=== PATIENT | female | born 1980 | race Caucasian/White ===

== ENCOUNTER → 2017-05-31 | Day surgery (SDC) | payer BC, OTHER ==
[~2017-05-31] VITALS: Ht 157.5 cm; Wt 60.3 kg
[~2017-05-31] MED LIST: BUPIVACAINE MPF 0.5% 30 ML VIAL. ONE; CETI10TA22 PO; CYCL10TA2 PO; DESFLURANE 31 TO 60 MINUTES IH ONE; DEXAMETHASONE SOD PHOS 20 MG/5 ML VIAL. ONE; DOCU-109 PO; DOXY100T PO; EPINEPHrine 1 MG/ML VIAL ONE; EPINEPHrine VIAL 30 MG/30 ML VIAL ONE; ESMOLOL 100 MG/10 ML VIAL. IV ONE; GLYCOPYRROLATE 1 MG/5 ML VIAL. ONE; HYDR-971 PO; HYDROcodone/APAP 5/325MG 1 TAB TABLET PO PRN; HYDROmorphone 2 MG/ML VIAL IV PRN; IV RINGERS,LACTATED 1000ML 1,000 ML IV SCH; LIDOCAINE 1% 1 ML SYRINGE. ID PRN; LIDOCAINE 1% 20 ML VIAL. ONE; LIDOCAINE 2% PF Vial for OR 5 ML VIAL. ONE; MIDAZOLAM HCL/PF 2 MG/2 ML VIAL. ONE; MONT10TA9 PO; MORPHINE SULFATE 2 MG/ML DISP.SYRIN. IV PRN; NAPR500T3 PO; ONDA4TAB10 SL; ONDANSETRON PF 4 MG/2 ML VIAL. IV PRN; ONDANSETRON PF 4 MG/2 ML VIAL. ONE; OXYC10TA PO; PHENYLEPHRINE 10 MG/ML VIAL. ONE; PROCHLORPERAZINE 10 MG/2 ML VIAL. IV PRN; PROCHLORPERAZINE 10 MG/2 ML VIAL. ONE; PROPOFOL 20 ML IV ONE; SERT50TA PO; SEVOFLURANE 61 TO 120 MINUTES. IH ONE; TRIA10.8 NS; VENTOLIN HFA18 GM INH; fentaNYL PF VIAL 100 MCG/2 ML VIAL IV PRN; fentaNYL PF VIAL 100 MCG/2 ML VIAL ONE
[2017-05-31 06:35] LABS: NEG OBC UR NEG; POS OBC UR POS
--- NOTE | 2017-05-31 08:13 | DISCH ---
DISCHARGE INSTRUCTIONS Condition on Discharge Condition on Discharge: Stable Activity After Discharge Activity Instructions for Disc: Activity as tolerated Bathing Instructions: Shower-keep dressing dry Weight Bearing Status after Di: As tolerated Wound Incision Care Wound/Incision Care: Ice to area for comfort, Keep wound/cast CDI, Change dressing Contacting the DRRafael after DC Call your doctor for: Concerns you may have Follow-Up Follow up with: Alex in 2wks AMBER TOUSSAINT II, MD May 31, 2017 08:13
--- NOTE | 2017-05-31 08:18 | PDOC4 ---
Operative Note Operative Note Date of surgery 05/31/2017 surgeon: Carlos Toussaint MD Preoperative diagnosis: Right knee medial meniscal tear Postoperative diagnosis: Same Procedure performed: Right knee arthroscopic partial medial meniscectomy Blood loss: 5 mL Tourniquet time: None used Anesthesia: Gen. plus local Findings: Patient had grade 2 changes at her patella centrally. Intact cartilage at the trochlea, medial and lateral compartments., No loose bodies present, intact cruciate ligaments without pathology Lateral meniscus was without pathology and stable to probing Medial meniscus had a undersurface flap tear approximately 5 mm x 1 cm long by 1 -2 mm thick. Reason for procedure: Deepali is a very pleasant 37-year-old female who failed conservative therapies for her knee pain and mechanical symptoms. Because of this we had a discussion of the risks, benefits, and alternatives to the above surgery and she elected to proceed. Description of procedure: Patient was greeted in the preoperative area by myself for the correct extremity was marked and verified. She was taken back to the operative suite and her antibiotics were started and row. Once in the OR she was transferred gently supine to the OR table and secured to the bed after successful induction of a general anesthetic. We placed a nonsterile tourniquet and taped in place to her right upper thigh but did not use it for this case. We attached a padded bar to the bed and a bolster at her hip to help maintain her leg at 90 of flexion. We then proceeded to prep and drape in her usual sterile fashion. We then conducted our standard preoperative timeout. After this I palpated and marked her surface anatomy and incised skin from a standard anterolateral arthroscopic portal. The blunt arthroscopic trocar was inserted into the suprapatellar pouch followed by the camera. I then conducted my diagnostic arthroscopy and upon entering the medial compartment I used a spinal needle to localize an anteromedial portal and then incised skin in accordance with this. I dilated the hole with the trocar and then inserted the probe and continued on with my diagnostic arthroscopy with the above-noted findings. After finishing my diagnostic arthroscopy I used combination of shaver and biter to trim back the undersurface tear to stable edge. There was a very small amount of fraying at the free edge of the meniscus around this area which I freshened up with the shaver as well. After this, I placed the camera and shaver into the suprapatellar pouch and performed repeated aspiration maneuvers with vigorous palpation at the posterior knee to ensure all loose pieces were removed. I then removed all excess arthroscopic fluid and the arthroscopic instrumentation. The portals were closed with simple interrupted 2-0 nylon and the knee and leg were cleansed and dried. A sterile dressing was applied followed by an Ben wrap. We then took down the drapes and the patient was awakened from anesthesia and transferred gently supine to the recovery room cart. She was taken to the PACU in stable and extubated condition. Postoperative plan is to discharge her home, weightbearing as tolerated right lower extremity, crutches as needed, we will see her back in 2 weeks, sooner should a problem arise. CARLOS TOUSSAINT II, MD May 31, 2017 08:18
[2017-05-31 10:15] VITALS: BP 85/43
== END | disposition home or self-care (01) ==
LOC: SURG 05:59
PROVIDERS: ATTEND Orthopaedic Surgery Sports Medicine
DX: S83.241A Other tear of medial meniscus, current injury, right knee, initial encounter (principal); X58.XXXA Exposure to other specified factors, initial encounter; Y93.89 Activity, other specified; Y92.89 Other specified places as the place of occurrence of the external cause; Y99.9 Unspecified external cause status; J45.909 Unspecified asthma, uncomplicated; F32.9 Major depressive disorder, single episode, unspecified; F17.200 Nicotine dependence, unspecified, uncomplicated; Z86.69 Personal history of other diseases of the nervous system and sense organs; Z88.1 Allergy status to other antibiotic agents; Z88.8 Allergy status to other drugs, medicaments and biological substances; Z98.51 Tubal ligation status; Z87.39 Personal history of other diseases of the musculoskeletal system and connective tissue; Z72.89 Other problems related to lifestyle
CPT/HCPCS: 29881; 81025; C1782; J0171; J0690; J1100; J2001; J2250; J2405; J2704; J3010; J3490; J0780